=== PATIENT | female | born 1985 | race Caucasian/White ===

== ENCOUNTER 2023-10-29 10:05 | Emergency (ER) | payer SELFPAY ==
[2023-10-29 10:14] VITALS: BP 134/83
[2023-10-29] MEDS: TORADOL 30 MG IV (10:42)
[2023-10-29] MEDS: ZOFRAN 4 MG IV (10:42)
[2023-10-29 10:44] LABS: % Basophils 0.3 % (0-2); % Eosinophils 0.7 % (0-6); % Immature Granulocytes 0.1 % (0-0.5); % Lymphocytes 31.8 % (20.5-51.1); % Monocytes 5.1 % (1.7-9.3); Absolute Eosinophils 0.1 10^3/uL (0-0.7); Absolute Lymphocytes 2.4 10^3/uL (1.2-3.4); Absolute Monocytes 0.4 10^3/uL (0.1-0.6); Absolute Neutrophils 4.6 10^3/uL (1.4-6.5); Hematocrit 38.4 % (37.0-47.0); Hemoglobin 13.7 g/dL (12.0-16.0); Mean Corp Hgb Conc. 35.7 g/dL (33.0-37.0); Mean Corpuscular Hgb 31.6 pg (27.0-31.0); Mean Corpuscular Volume 88.5 fL (81.0-99.0); Mean Platelet Volume 8.9 fL (7.4-10.4); Nucleated Red Blood Cells % 0 %; Platelet Count 295 10^3/uL (130-400); Red Blood Cell Count 4.34 10^6/uL (4.20-5.40); Red Cell Dist. Width 11.9 % (11.5-14.5); White Blood Cell Count 7.4 10^3/uL (4.8-10.8)
[2023-10-29] MEDS: NSS 1000 IV (10:49)
[2023-10-29 10:56] LABS: HCG, Serum Qualitative Screen Negative
[2023-10-29] MEDS: MORPHINE SULFATE 2 MG IV ×2 (10:59→13:26)
[2023-10-29 11:18] LABS: ALT (SGPT) 16 U/L (0-35); AST (SGOT) 23 U/L (14-36); Albumin 4.7 g/dl (3.5-5.0); Alkaline Phosphatase 86 U/L (38-126); Blood Urea Nitrogen 9 mg/dl (7-17); Calcium 9.9 mg/dl (8.4-10.2); Carbon Dioxide 15 mmol/L (22-30); Chloride 105 mmol/L (98-107); Glucose 112 mg/dl (70-99); Lipase 59 U/L (23-300); Potassium 3.9 mmol/L (3.5-5.1); Sodium 137 mmol/L (135-145); Total Bilirubin 0.6 mg/dl (0.2-1.3); Total Protein 7.2 g/dl (6.3-8.2); eGFR > 60.00
--- NOTE | 2023-10-29 11:23 | ED.GENMED ---
History of Present Illness
General
Chief Complaint: Abdominal Symptoms
Source: patient
Time Seen by Provider: 10/29/23 10:28
History of Present Illness
History of Present Illness:
38-year-old female with no significant past medical history presenting to the emergency department for evaluation of generalized abdominal discomfort last night now worse within the right pelvic area, sharp, severe, nonradiating and accompanied with
nausea. Patient did not attempt any medications for relief prior to arrival. Denies any fevers, chills, rigors, bowel changes, urinary symptoms or any other concerns. She does note a history of ovarian cysts and states that the location is
somewhat similar but the quality is much more severe this time. Last menstrual period was about 10 days ago, she does not have concern for . Social history was otherwise noncontributory.
Past History
Past History
ED Past Medical History: None
ED Past Surgical History: Other
Social History
Tobacco: Non-smoker
Alcohol: Occasional
Drug: None
Personal: Single
Living: with family
Review of Systems
Review of Systems
All Other Systems: ROS reviewed and negative except as documented in HPI and ROS
Phy Exam
Physical Exam
Physical Exam:
GENERAL: Alert , appears in significant discomfort, moaning, unable to sit still
EYE: clear conjunctiva b/l
HEAD: NCAT
ENT: mmm.
CARDIAC: Regular rate and rhythm .
LUNGS: Clear breath sounds bilaterally, no acute respiratory distress, no wheezes/rales/rhonchi
ABDOMEN: Soft, right lower pelvic/adnexal tenderness, no r/g, no cvat, negative So sign, no tenderness at McBurney's point
NEUROLOGICAL: Alert and oriented
SKIN: Warm and dry, skin intact.
MUSCULOSKELETAL: well perfused.
PSYCH: Normal and appropriate interaction.
Scores
Heart Failure Risk
Heart Failure Risk Score: Not Applicable
Heart Score for Chest Pain Patients
STEMI patient?: Not applicable
Withdrawal Assessment of Alcohol
Withdrawal Assessment Completed?: Not applicable
Course
Orders/Labs/Results
Orders:
Orders
10/29/23 10:28
Test Result ONCE
10/29/23 10:30
Complete Blood Count/With Diff Urgent
Comprehensive Metabolic Panel Urgent
HCG, Serum Qualitative Screen Urgent
Lipase Urgent
Urinalysis Reflex To Culture Urgent
Date Specimen was Collected: 10/29/23
Time Specimen was Collected: 10:27
10/29/23 10:33
0.9% Sodium Chloride 1000 ml [Nss] 1,000 ml IV BOLUS
Ketorolac [Toradol] 30 mg IV NOW STA
Ondansetron Injectable [Zofran] 4 mg IV NOW STA
US Transvaginal [US Pelvis W Transvag Combined] Urgent
Comment:
Reason For Exam: right lower pelvic pain, hx cysts
10/29/23 10:56
Morphine Sulfate 2 mg .ROUTE .STK-MED ONE
10/29/23 10:58
Morphine Sulfate 2 mg IV NOW STA
Abnormal Lab Results
10/29/23
10:30
MCH 31.6 H pg
(27.0-31.0)
Carbon Dioxide 15 L mmol/L
(22-30)
Glucose 112 H mg/dl
(70-99)
Urine Ketones 3+ A
(Negative)
10/29/23 10:30
10/29/23 10:30
Vital Signs
Initial and Last Documented VS:
Initial Vital Signs
Temp Pulse Resp BP Pulse Ox
97.8 F 68 16 134/83 98
10/29/23 10:14 10/29/23 10:14 10/29/23 10:14 10/29/23 10:14 10/29/23 10:14
Last Documented Vital Signs
Temp Pulse Resp BP Pulse Ox
97.8 F 68 16 134/83 98
10/29/23 10:14 10/29/23 10:14 10/29/23 10:14 10/29/23 10:14 10/29/23 10:14
MDM/Problems Addressed
Differential Diagnosis Includes:
/ectopic , ovarian cyst, renal/ureteral colic, appendicitis
MDM/Problems Addressed:
38 year old female presenting to ED with severe right lower abdominal pain, mild nausea but no other symptoms. 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 Right pelvic/adnexal ttp. History of ovarian cysts. Will check stat US to rule out ovarian torsion/cyst. Kidney
stone on differential. Considering appendicitis as well. Toradol ordered for pain
*Radiology
Radiology exam reviewed: radiology read reviewed
*Pulse Oximetry
Patient hypoxic: no
*Critical Care Note
Total Time (30-74mins, 75-104mins- exclusive of procedures): Not Applicable
Comment
Comment:
Pain mildly improved with toradol, will treat with additional 2mg morphine IV
Patient Management
Discussion with other providers: Career Professional
Escalation/DeEscalation of care consider admission/obs:
Following the morphine, patient notes improved pain. US findings noted as below:
There is a large left fundal fibroid.
Normal appearance of the endometrium.
There are bilateral ovoid cystic masses, somewhat tubular in configuration. These are suggestive of bilateral hydrosalpinx, although could possibly represent bilateral paraovarian cysts.
In the right adnexal region, adjacent to the right ovary and the dilated cystic mass, there is a small intermediate echogenicity mass with internal color flow. This finding raises concern for a small neoplasm arising from or adjacent to the right
ovary. Continued follow-up is advised with ultrasound and/or pelvic MRI.
Small complex cyst arising within the left ovary, compatible with hemorrhagic follicle.
No significant free pelvic fluid.
I reviewed these ultrasound findings with on-call [employer] SUPERVISOR, Dr. Wilson, who states at this time there is nothing else to do within the ER and that the rest of the work is outpatient based. [employer] SUPERVISOR sent patient's information to their credit front office developer staff to help
expedite the outpatient workup. Encourage patient to contact primary care provider as well and they might be able to expedite obtaining the pelvic MRI. Prescription for Percocet and Zofran sent to pharmacy. Patient provided with the office
information for [employer]. Patient is aware of return precautions to the ER. Otherwise stable for discharge home.
ED Attending Note
-
Portions of this chart may have been created with voice recognition software.� Occasional wrong word or��sound alike� substitutions may have occurred due to the inherent limitations of voice recognition software.
Discharge Plan
Departure
Patient Disposition: Home (Routine Discharge)
Date of Disposition: 10/29/23
Time of Disposition: 12:53
Patient with high blood pressure during this ER visit?: No
Discharge Problem:
Pelvic pain, Ovarian cystic mass
Instructions: Ovarian Cyst ED
Prescriptions:
New
oxycodone-acetaminophen [Percocet] 5-325 mg tablet
1 tab PO Q6HPRN PRN (Reason: pain) Qty: 6 0RF
ondansetron 4 mg tablet,disintegrating
4 mg PO TIDPRN PRN (Reason: nausea/vomiting) Qty: 8 0RF
Referrals:
Vonda Wilson MD [Active] - ([employer] SUPERVISOR)
NONE,* [Family Provider] -
Interventions
Interventions:
*Risk Screen - Suicide Last Done: 10/29/23 10:14
*Neglect/Abuse Screening Last Done: 10/29/23 10:14
Discharge Date and Time
Print Language: MOHAWK
[2023-10-29 12:36] LABS: Urine Albumin Negative (Neg - Trace); Urine Bilirubin Negative (Negative); Urine Character Clear (Clear); Urine Color Yellow; Urine Glucose Negative (Negative); Urine Ketone 3+ (Negative); Urine Leukocyte Negative (Negative); Urine Nitrite Negative (Negative); Urine Occult Blood Negative (Negative); Urine Specific Gravity 1.015 (<1.030); Urine Urobilinogen Negative (Neg - 1+)
== END 2023-10-29 13:05 | disposition home or self-care (01) ==
LOC: EMR 10:05
PROVIDERS: Student in an Organized Health Care Education/Training Program; EMERGENCY PHYSICIAN Emergency Medicine
DX: N83.201 Unspecified ovarian cyst, right side (principal); R10.2 Pelvic and perineal pain; R11.0 Nausea; N83.9 Noninflammatory disorder of ovary, fallopian tube and broad ligament, unspecified; Z91.013 Allergy to seafood; Z91.018 Allergy to other foods
CPT/HCPCS: 99284; 96374; 96375 ×2; 96361; 96376; 76830; 76856; 80053; 81003; 83690; 84703; 85025